=== PATIENT | female | born 1970 | race Caucasian/White ===

== ENCOUNTER 2016-11-28 01:11 | Inpatient (IN) | payer SELFPAY ==
[~2016-11-28] VITALS: Ht 170.2 cm; Wt 91.1 kg
--- NOTE | ~2016-11-28 | DS ---
PATIENT'S NAME: JEFF SALMON [facility] AGE: 46 Y [address] ROOM: [address] [address] LOCATION: [facility] [place] ADMIT DATE: 11/28/2016 Discharge Summary DISCHARGE DATE: 11/28/2016 FAMILY PHYSICIAN: Satnam Paris MD ATTENDING PHYSICIAN: Alex Guerrero DISCHARGE DIAGNOSES: 1. Depression with suicide/OD. 2. Smoker. 3. Obesity. 4. Malnutrition. PROCEDURES: None. REASON FOR ADMISSION: The patient took an overdose of hydrocodone/acetaminophen. LABORATORY DATA: White count 12.8, hemoglobin 14.6 with platelets 211. Glucose 107, BUN and creatinine normal. Sodium and potassium were 139 and 3.6 respectively. Calcium was down secondary to albumin being down somewhat. GFR was 90. HOSPITAL COURSE: The patient was given a course of acetylcysteine. She is now alert, somewhat repents saying, "I got to get back to work." She is voluntarily going to [facility], and we will treat her hypokalemia there which is two weeks' worth of potassium chloride 20 mEq p.o. daily. Reference is made to the nursing med recon form. We will continue thiamine and folic acid and give her a nicotine patch. Followup will be per psychiatric opinion at discharge and with her primary on a p.r.n. basis. Diet will be ad nicole for now. ACTIVITY: Ad nicole. This discharge took greater than 30 minutes. MD ARTHUR VINCENT/modl /[id number] d: 11/29/16 1235 t: 11/29/16 1401, DISCHARGE SUMMARY
--- NOTE | ~2016-11-28 | HP ---
PATIENT'S NAME: JEFF SALMON [facility] AGE: 46 Y [address] ROOM: [place] [address] LOCATION: [facility] ADMIT DATE: 11/28/2016 History & Physical DISCHARGE DATE: FAMILY PHYSICIAN: Satnam Paris MD ATTENDING PHYSICIAN: ANGELITO MACKEY DATE OF SERVICE: CHIEF COMPLAINT: Drug overdose. HISTORY OF PRESENT ILLNESS: A 46-year-old lady with no significant past medical history except tobaccoism, who presented to the [facility], brought in by ex- after she ingested 25 to 30 pills of hydrocodone and Tylenol strength 5/325 mg and presented to the emergency department over there; she was lethargic, drowsy, bradycardiac, and low respiratory rate, and she was given multiple doses of Narcan with improvement in the respiratory status as well as in cognition. Tylenol levels were done, and 3 hours Tylenol levels were 78 mcg. Per Poison Control, N-acetylcysteine drip was started, and she was transferred here for further medical care. On arrival, she is alert and oriented x3. She is not complaining of anything. Does not have any headache, any trouble with the eyes. Does complain of some nausea, and she threw up one time after starting the N-acetylcysteine. She denied any abdominal pain, constipation, diarrhea, burning on urination, extremities swelling. On my questioning, she said that she ingested the pills in order to terminate her life because of multiple problems in her life. At this point, she is denying any suicide ideation. REVIEW OF SYSTEMS: All other systems reviewed and were negative except what is mentioned in the HPI. PAST MEDICAL HISTORY: None. MEDICATIONS: None. ALLERGIES: NO KNOWN DRUG ALLERGIES. SOCIAL HISTORY: Lifelong smoker. Conflicting reports on alcohol use. It appears that she is a heavy drinker. PATIENT'S NAME: MAYURI [facility] AGE: 46 Y [address] ROOM: [place] [address] LOCATION: [facility] ADMIT DATE: 11/28/2016 History & Physical DISCHARGE DATE: FAMILY PHYSICIAN: Satnam Paris MD ATTENDING PHYSICIAN: ANGELITO MACKEY FAMILY HISTORY: Negative for premature coronary artery disease or diabetes. PHYSICAL EXAMINATION: VITAL SIGNS: Vitals were reviewed and were all unremarkable with the heart rate in the 70s, blood pressure 160/60, respiratory rate of 15, satting above 95% on room air. GENERAL: No acute distress. Alert and oriented x3. HEENT: Head: Atraumatic, normocephalic. Eyes: Nonicteric. No pallor. Oropharynx: Moist mucous membranes. CARDIOVASCULAR: S1, S2. No murmurs, gallops, or rubs. LUNGS: Clear to auscultation bilaterally. ABDOMEN: Soft, nontender, nondistended. Bowel sounds present. EXTREMITIES: No clubbing, cyanosis, or edema. PSYCH: Normal affect, mood, and speech. Denies suicidal ideation at this point. MUSCULOSKELETAL: No muscle tenderness or joint swelling noted. ENDOCRINE: No myxedema or thyromegaly noted. SKIN: No bruises or rashes noted. LABORATORY DATA: All the lab work from outside facility have been unremarkable except the Tylenol level which was 78 mcg/mL. Here, we repeated the Tylenol levels and it was 19 mcg/mL and that would be 8 hours after ingestion. ASSESSMENT: 1. Tylenol and hydrocodone overdose. 2. Suicide attempt. PLAN: We are going to admit this lady. She was initially admitted to the ICU and was started on N-acetylcysteine. I did speak to Poison Control twice. Given she initially had high Tylenol level at 78 mcg/mL at 3 hours, she was started on N-acetylcysteine but now at 8 hours, her Tylenol levels are 19 mcg/mL. We are going to discontinue the N-acetylcysteine per Poison Control instruction as well as nomogram. Her LFTs are all unremarkable. We are going to put her on end-tidal monitoring for respiratory depression. We are going to move her out of the ICU at this point. I will continue some IV hydration. Thiamine and folic acid will be started. We will closely monitor for any alcohol withdrawal. Transdermal nicotine patch will be applied. The patient is full code. DVT prophylaxis with the SCDs. She will need a Psych consult in the morning for her suicide attempt and probably need an inpatient psych transfer. PATIENT'S NAME: JEFF SALMON [facility] AGE: 46 Y [address] ROOM: [address] [place] [id number] LOCATION: GICU ADMIT DATE: 11/28/2016 History & Physical DISCHARGE DATE: FAMILY PHYSICIAN: Satnam Paris MD ATTENDING PHYSICIAN: ANGELITO MACKEY ANGELITO MACKEY MD GOGO/modl /[id number] D: [id number] T: [id number] HISTORY & PHYSICAL
[2016-11-28 03:08] LABS: BASOPHIL % 0.2 %; EOSINOPHIL % 0.2 %; HEMATOCRIT 41.2 % (33.0-46.0); HEMOGLOBIN 14.6 g/dL (10.0-15.0); IMMATURE GRANULOCYTE # 0.1 K/uL (0.0-0.3); IMMATURE GRANULOCYTE % 1.1 %; LYMPHOCYTE # 1.5 K/uL (0.8-4.0); LYMPHOCYTE % 11.6 %; MCH 34.4 pg (27.0-34.0); MCHC 35.4 gm/dL (32.0-36.5); MCV 96.9 fl (83.0-98.0); MONOCYTE # 0.5 K/uL (0.0-1.0); MPV 9.9 fl (9.4-12.4); NEUTROPHIL # (ANC) 10.7 K/uL (1.8-7.8); NEUTROPHIL % 82.9 %; NRBC % 0 /100WBC (0-0.00); PLATELET COUNT 211 K/uL (150-450); RBC 4.25 M/uL (3.50-5.50); RDW-CV 13.1 % (11.9-14.6); WBC 12.8 K/uL (4.0-11.0)
[2016-11-28 03:27] LABS: ALBUMIN 3.3 gm/dL (3.5-5.0); ALK PHOS 98 IU/L (33-138); ALT 33 IU/L (12-78); AST 16 IU/L (10-40); BLOOD UREA NITROGEN 8 mg/dL (6-24); CALCIUM 8.1 mg/dL (8.5-10.5); CHLORIDE 108 mMol/L (96-110); CO2 22 mMol/L (22-32); CREATININE 0.6 mg/dL (0.5-1.1); SODIUM 141 mMol/L (135-145); TOTAL BILIRUBIN 0.3 mg/dL (0.0-1.5); TOTAL PROTEIN 6.8 g/dL (6.0-8.4)
[2016-11-28 08:29] LABS: ALBUMIN 3.3 gm/dL (3.5-5.0); ALK PHOS 99 IU/L (33-138); ALT 26 IU/L (12-78); ANION GAP 11.6 (10.0-19.0); AST 12 IU/L (10-40); BLOOD UREA NITROGEN 7 mg/dL (6-24); CALCIUM 8.3 mg/dL (8.5-10.5); CHLORIDE 107 mMol/L (96-110); CO2 24 mMol/L (22-32); CREATININE 0.5 mg/dL (0.5-1.1); POTASSIUM 3.6 mMol/L (3.7-5.1); SODIUM 139 mMol/L (135-145); TOTAL PROTEIN 6.7 g/dL (6.0-8.4)
[2016-11-28 08:32] LABS: TOTAL BILIRUBIN 0.4 mg/dL (0.0-1.5)
[2016-11-28 16:22] LABS: BILIRUBIN URINE NEGATIVE (NEGATIVE); BLOOD URINE 150 /UL (NEGATIVE); COLOR URINE YELLOW (YELLOW); GLUCOSE URINE NEGATIVE (NEGATIVE); KETONE URINE NEGATIVE (NEGATIVE); LEUKOCYTES URINE 25 /UL (NEGATIVE); NITRITE URINE NEGATIVE (NEGATIVE); PROTEIN URINE NEGATIVE (NEGATIVE); SPEC GRAVITY URINE 1.025 (1.003-1.035); TURBIDITY URINE 1+ (CLEAR); UROBILINOGEN URINE NORMAL (NORMAL)
[2016-11-28 16:33] LABS: WBC URINE 0-2 #/HPF (NEGATIVE)
[2016-11-28 16:34] LABS: BACTERIA URINE FEW (NEGATIVE); EPITHELIAL URINE 20-50 #/HPF (NEGATIVE)
[2016-11-30] MEDS ORDERED: K-TAB ER20 MEQ PO (09:35)
== END 2016-11-28 16:15 | DRG 918 ==
LOC: GICU 01:11 → GMSU 02:18 → GICU 02:18 → GMSU 08:29
PROVIDERS: Family Medicine; ADMIT Internal Medicine
DX: T50.992A Poisoning by other drugs, medicaments and biological substances, intentional self-harm, initial encounter (principal); E46 Unspecified protein-calorie malnutrition; F32.9 Major depressive disorder, single episode, unspecified; E66.9 Obesity, unspecified; Z68.31 Body mass index [BMI] 31.0-31.9, adult; F17.210 Nicotine dependence, cigarettes, uncomplicated
CPT/HCPCS: G0480; J2405; J7120